=== PATIENT | female | born 1945 | race Caucasian/White ===

== ENCOUNTER → 2023-02-28 10:52 | Outpatient (CLI) | payer MEDICARE, SELFPAY ==
[2023-02-28 11:33] LABS: Basophils % 0.2 % (0.1-2.0); Eosinophils # 0.2 K/mm3 (0.0-0.4); Eosinophils % 1.9 % (0.1-12.0); Hematocrit 40.6 % (37.0-47.0); Hemoglobin 12.6 g/dL (12.2-16.2); Lymphocytes % 31.8 % (10-50); Mean Corpuscular HGB Conc 31.2 g/dL (31.8-35.4); Mean Corpuscular Hemoglobin 28.2 pg (27.0-31.2); Mean Corpuscular Volume 90.4 fl (81-99); Mean Platelet Volume 7.9 fl (7.4-10.4); Monocytes # 0.5 K/mm3 (0.1-1.0); Monocytes % 5.6 % (1.7-9.3); Neutrophils # 5.7 K/mm3 (1.8-7.8); Neutrophils % 60.6 % (37.0-80.0); Platelet Count 275 K/mm3 (142-424); Red Blood Count 4.49 M/mm3 (4.20-5.40); Red Cell Distribution Width 13.9 % (11.5-17.5); White Blood Count 9.3 K/mm3 (4.8-10.8)
[2023-02-28 12:44] LABS: Hemoglobin A1C 6.5 % (4.0-6.0)
[2023-02-28 13:12] LABS: Alanine Aminotransferase 24 U/L (12-78); Albumin Level 4.3 g/dl (3.5-5.0); Alkaline Phosphatase 74 U/L (38-126); Anion Gap 11.1 mEq/L (5-15); Aspartate Amino Transferase 29 U/L (14-36); Bilirubin,Direct 0.2 mg/dl (0.0-0.4); Bilirubin,Total 0.2 mg/dl (0.2-1.3); Blood Urea Nitrogen 18 mg/dl (7-17); Calcium 9.3 mg/dl (8.4-10.2); Carbon Dioxide 27 mmol/L (22.0-30.0); Chloride 103 mmol/L (98-107); Chol/HDL Ratio 3.3 (1-3.5); Cholesterol 167 mg/dl (140-200); Estimated Glomerular Filt Rate 54 ml/min (>60); GFR (African American) 65 ML/MIN (>60); Glucose 60 mg/dl (74-100); HDL Cholesterol 51 mg/dl (40-60); Magnesium 1.6 mg/dl (1.6-2.3); Potassium 4.1 mmoL/L (3.5-5.1); Sodium 137 mmol/L (136-145); Triglycerides 234 mg/dl (30-150); VLDL Cholesterol 47 mg/dL (0-40)
[2023-02-28 13:23] LABS: Direct LDL Cholesterol 78.53 mg/dL (100-129)
[2023-02-28 13:28] LABS: Free T4 (Free Thyroxine) 0.93 ng/dl (0.78-2.19)
[2023-02-28 13:42] LABS: Thyroid Stimulating Hormone 4.07 uIU/mL (0.465-4.68)
== END ==
PROVIDERS: PCP Family Medicine; Visit Provider Physician Assistant
DX: E11.9 Type 2 diabetes mellitus without complications (principal); F41.9 Anxiety disorder, unspecified; I10 Essential (primary) hypertension; R00.2 Palpitations; G45.8 Other transient cerebral ischemic attacks and related syndromes; Z79.84 Long term (current) use of oral hypoglycemic drugs
CPT/HCPCS: 36415; 80048; 80061; 80076; 83036; 83735; 84439; 84443; 85025; 93270

== ENCOUNTER → 2023-04-04 07:21 | Outpatient (CLI) | payer MEDICARE, OTHER, SELFPAY ==
--- NOTE | 2023-04-04 07:26 | NM_ITS ---
APPROVED REPORT Exam: Nuclear Stress Test Indication: HTN, DM, HYPERLIPIDEMIA, PALPITATIONS, FATIGUE Patient Location: Outpatient Stress Tech: Ria Mccallum [place] Tech:Marii Victor RICKClifton RT (R)(N)(M) Ht: 5 ft 4 in Wt: 170 lbs Bra Size: 38D HR: 45 bpm BP: 168/69 mmHg BSA: 1.83 m2 TID: 1.16 BMI: 29.1 History: HTN, DM, HYPERLIPIDEMIA, PALPITATIONS, FATIGUE Procedure: Patient received 0.4 mg of intravenous Lexiscan, resting heart rate 45 bpm, resting blood pressure 168/69 mmHg, with AdenosineLexiscan maximum heart rate achieved was 73 bpm which is % of the maximum predicted heart rate and blood pressure was 126/53 mmHg. PT DID C/O CHEST TINGLING AND SOB WITH LEXISCAN Cardiac Stress and Resting SPECT Images: Cardiac Stress and Resting SPECT images were obtained using technetium 99m Myoview 29.1 mCi stress and 10.37 mCi at rest. Resting and stress imaging in supine and prone positions demonstrate no evidence of fixed or reversible perfusion defects. Gated imaging demonstrates normal global and regional LV systolic function. LVEF is calculated at 63%. Conclusion: No evidence of fixed or reversible perfusion defects. Gated imaging demonstrates normal global and regional LV systolic function. LVEF is calculated at 63%. Electronically signed by : Beena Cosme MD 04/07/2023 12:42:36
--- NOTE | 2023-04-04 08:24 | CA_ITS ---
APPROVED REPORT EXAM: Comprehensive 2D, Doppler, and color-flow Echocardiogram Associate Professor Of Music: Tasneem Chamberlain RDCS Ht: 5 ft 4 in Wt: 170lbs BSA: 1.83 BP: 159/59 mmHg Indications: PALPS,H/O TIA,HTN,DM 2D Dimensions LVOT 1.60 cm (M/F) 1.5-2.5 LA Volume 72.80 mL LA Volume Index 39.78 mL/m2 (M/F) 16-34 M-Mode Dimensions RVDd 2.92 cm (0.9-2.6) LA Diam 3.73 cm (1.9-4.0) LVDd 4.96 cm (3.5-5.7) Ao Diam 2.66 cm (2.0-3.7) LVDs 3.25 cm (3.5-5.7) IVSd 0.97 cm (0.6-1.1) PWd 0.80 cm (0.6-1.1) EF (Teich) 63.40% FS 34.50% EDV (Teich) 116.10 mL TAPSE 2.27 (<1.7) ESV (Teich) 42.50 mL LV Diastology MED E' 4.70 (< 7 cm/sec) LAT E' 6.90 (<10 cm/sec) Left Ventricle The left ventricle is normal size. The left ventricular systolic function is normal. The left ventricular ejection fraction is within the normal range. There is normal left ventricular wall thickness. There is normal LV segmental wall motion. Diastolic function is indeterminate. LVEF is 60%. Right Ventricle Right ventricle is mildly dilated. The right ventricular systolic function is normal. Atria Left atrium is mildly dilated. The right atrium size is normal. There is no Doppler evidence of interatrial shunt. Aortic Valve The aortic valve is mildly thickened. There is no aortic valvular stenosis. No aortic regurgitation is present. Mitral Valve The mitral valve is normal in structure. No evidence of mitral valve stenosis. Mild mitral regurgitation. Tricuspid Valve The tricuspid valve leaflets are thin and pliable. Trace tricuspid regurgitation. RVSP is normal. Pulmonic Valve The pulmonary valve is normal in structure. Trace pulmonic regurgitation. Great Vessels The aortic root is normal in size. The ascending aorta is normal in size. IVC is normal in size and collapses >50% with inspiration. Pericardium Trivial pericardial effusion. Other Information Study Quality: Adequate Conclusion Normal biventricular systolic function. Mildly dilated RV. Mild MR. Electronically signed by : Beena Cosme MD 04/04/2023 22:04:12
--- NOTE | 2023-04-04 10:12 | CA_ITS ---
APPROVED REPORT Exam: Pharmacologic Technologist: Ria Mccallum Ht: 5 ft 3 in Wt: 171 lbs BSA: 1.81 m2 HR: 45 bpm BP: 168/69 mmHg Rhythm: NSR Indications: Palpitations Medical History Medications: Amlodipine,,,,, Hydralazine,,,,, Aspirin,,,,, Vitamin D3,,,,, Glipizide,,,,, Flaxseed Oil,,,,, Valsartan,,,,, Caltrate,,,,, Centrum Silver,,,,, OSTEO Bi Flex,,,,, Sertraline,,,,, RoSUVASTATIN,,,,, Stress Test Details Test: LEXISCAN HR Resting HR: 46 bpm Max Heart Rate (APMHR): 144 bpm Max HR Achieved: 73 bpm Target HR (85% APMHR): 122 bpm % of APMHR: 51 Recovery HR: 57 bpm BP Resting BP: 168.0/69.0 mmHg Max BP: 168.0/69.0 mmHg Recovery BP: 136.0/56.0 mmHg ECG Resting ECG: Normal sinus rhythm Stress ECG: No ST changes Arrhythmia: None Clinical Exercise duration: 04:15 min Highest Stage Achieved: Exercise capacity: 1.0 METs Stress ECG Conclusion Symptoms: Chest tingling, Shortness of Breath, Headache Arrhythmias/Ectopy: None ST-T Changes: No significant ST changes Conclusion: Unremarkable Lexiscan stress test. Myoview images are reported separately. Test Summary REST . . . . . . . Resting REST 06:11 . . 46 . 168/ 69 . . Stage 1 . . . . . . . Myoview Injected Stage 1 01:00 . . 65 . . . . Stage 2 01:00 . . 69 . 126/ 53 . . Stage 3 01:00 . . 65 . . . . Stage 4 01:00 . . 64 . . . . Stage 4 01:15 . . 61 . . . Stop exercise at 04:15 RECOVERY 01:00 . . 51 . 111/ 50 . . RECOVERY 02:00 . . 59 . 111/ 50 . . RECOVERY 03:00 . . 60 . 127/ 55 . . RECOVERY 04:00 . . 58 . 132/ 53 . . RECOVERY 04:29 . . 55 . 136/ 56 . . Electronically signed by : Beena Cosme MD 04/07/2023 12:41:40
== END ==
LOC: RAD 07:22
PROVIDERS: PCP Family Medicine; Visit Provider Physician Assistant
DX: I10 Essential (primary) hypertension; R00.2 Palpitations; G45.8 Other transient cerebral ischemic attacks and related syndromes; E11.9 Type 2 diabetes mellitus without complications; Z79.84 Long term (current) use of oral hypoglycemic drugs; Z79.899 Other long term (current) drug therapy; R07.89 Other chest pain
CPT/HCPCS: 78452; 93017; 93306; A9502; J2785

== ENCOUNTER → 2023-04-19 07:36 | Outpatient (CLI) | payer MEDICARE, OTHER, SELFPAY ==
--- NOTE | 2023-04-19 07:36 | US_ITS ---
FINAL REPORT CLINICAL HISTORY: G45.9 - Transient cerebral ischemic attack, unspecified FINDINGS: The right kidney measures 10.4 cm in length. It is normal in echogenicity. There is no hydronephrosis. The left kidney measures 11.1 cm in length. It is normal in echogenicity. There is no hydronephrosis. The spleen is unremarkable. IMPRESSION: Normal renal ultrasound. Reviewed, Interpreted and Dictated by Florentin Gunn MD Transcribed by Ally Griffin Authenticated and [facility]
--- NOTE | 2023-04-19 07:36 | CA_ITS ---
FINAL REPORT CLINICAL HISTORY: HTN COMPARISON: None FINDINGS: Aorta velocity: 112 cm/sec Right kidney: 10.3 cm. No evidence of hydronephrosis or mass. Right intrarenal RI: 0.83 Right renal artery velocity: 112 cm/sec. Right RAR (Renal artery-Aortic Ratio): 1.01 Left Kidney: 10.1 cm. No evidence of hydronephrosis or mass. Left intrarenal RI: 0.85 Left renal artery velocity: 132 cm/sec. Left RAR (Renal Artery-Aortic Ratio): 1.2 IMPRESSION: No evidence of significant renal artery stenosis. CT angiogram or postcontrast MR angiogram would be more sensitive for evaluation of possible renal artery stenosis. Reviewed, Interpreted and Dictated by Florentin Gunn MD Transcribed by Renee Michele Authenticated and [facility]
== END ==
PROVIDERS: PCP Family Medicine; Visit Provider Physician Assistant
DX: I10 Essential (primary) hypertension (principal); Z86.73 Personal history of transient ischemic attack (TIA), and cerebral infarction without residual deficits; R00.2 Palpitations; E11.9 Type 2 diabetes mellitus without complications; Z79.84 Long term (current) use of oral hypoglycemic drugs; F41.9 Anxiety disorder, unspecified
CPT/HCPCS: 76770; 93976

== ENCOUNTER 2023-08-02 08:50 | Outpatient (CLI) | payer MEDICARE, OTHER, SELFPAY ==
[2023-08-02 09:16] LABS: Basophils % 0.2 % (0.1-2.0); Eosinophils # 0.2 K/mm3 (0.0-0.4); Eosinophils % 1.6 % (0.1-12.0); Hematocrit 37.1 % (37.0-47.0); Hemoglobin 12.3 g/dL (12.2-16.2); Lymphocytes # 2.3 K/mm3 (0.7-4.5); Lymphocytes % 24.1 % (10-50); Mean Corpuscular HGB Conc 33.1 g/dL (31.8-35.4); Mean Corpuscular Hemoglobin 30.1 pg (27.0-31.2); Mean Corpuscular Volume 90.8 fl (81-99); Monocytes # 0.5 K/mm3 (0.1-1.0); Monocytes % 4.9 % (1.7-9.3); Neutrophils # 6.6 K/mm3 (1.8-7.8); Neutrophils % 69.2 % (37.0-80.0); Platelet Count 312 K/mm3 (142-424); Red Blood Count 4.09 M/mm3 (4.20-5.40); Red Cell Distribution Width 13.4 % (11.5-17.5); White Blood Count 9.6 K/mm3 (4.8-10.8)
[2023-08-02 09:36] LABS: Alanine Aminotransferase 31 U/L (12-78); Albumin Level 4.4 g/dl (3.5-5.0); Alkaline Phosphatase 78 U/L (38-126); Anion Gap 10.8 mEq/L (5-15); Aspartate Amino Transferase 31 U/L (14-36); Bilirubin,Direct 0.2 mg/dl (0.0-0.4); Bilirubin,Indirect 0.2 mg/dL (0.0-0.9); Bilirubin,Total 0.4 mg/dl (0.2-1.3); Bilirubin,Unconjugated 0.1 mg/dL (0.0-1.1); Blood Urea Nitrogen 16 mg/dl (7-17); Calcium 9.7 mg/dl (8.4-10.2); Carbon Dioxide 29 mmol/L (22.0-30.0); Chloride 94 mmol/L (98-107); Cholesterol 171 mg/dl (140-200); Estimated Glomerular Filt Rate 61 ml/min (>60); GFR (African American) 74 ML/MIN (>60); Glucose 143 mg/dl (74-100); HDL Cholesterol 43 mg/dl (40-60); Magnesium 1.5 mg/dl (1.6-2.3); Potassium 3.8 mmoL/L (3.5-5.1); Sodium 130 mmol/L (136-145); Triglycerides 221 mg/dl (30-150); VLDL Cholesterol 44 mg/dL (0-40)
[2023-08-02 09:47] LABS: Direct LDL Cholesterol 80.66 mg/dL (100-129)
[2023-08-02 09:50] LABS: Free T4 (Free Thyroxine) 0.95 ng/dl (0.78-2.19)
[2023-08-02 10:05] LABS: Thyroid Stimulating Hormone 4.57 uIU/mL (0.465-4.68)
== END 2023-08-02 23:59 ==
LOC: LAB 08:51
PROVIDERS: Physician Assistant; PCP Family Medicine; Visit Provider Physician Assistant
DX: E11.9 Type 2 diabetes mellitus without complications (principal); I10 Essential (primary) hypertension; Z79.84 Long term (current) use of oral hypoglycemic drugs; Z79.899 Other long term (current) drug therapy
CPT/HCPCS: 36415; 80048; 80061; 80076; 83735; 84439; 84443; 85025

== ENCOUNTER 2023-08-22 11:41 | Outpatient (CLI) | payer MEDICARE, OTHER, SELFPAY ==
[2023-08-22 13:14] LABS: Blood Urea Nitrogen 18 mg/dl (7-17); Calcium 9.3 mg/dl (8.4-10.2); Carbon Dioxide 30 mmol/L (22.0-30.0); Chloride 90 mmol/L (98-107); Estimated Glomerular Filt Rate 61 ml/min (>60); GFR (African American) 74 ML/MIN (>60); Glucose 84 mg/dl (74-100); Sodium 128 mmol/L (136-145)
== END 2023-08-22 23:59 ==
PROVIDERS: Nurse Practitioner Family; PCP Family Medicine; Visit Provider Physician Assistant
DX: E87.1 Hypo-osmolality and hyponatremia (principal)
CPT/HCPCS: 36415; 80048

== ENCOUNTER 2023-09-22 10:24 | Outpatient (CLI) | payer MEDICARE, OTHER, SELFPAY ==
[2023-09-22 11:32] LABS: Anion Gap 13.3 mEq/L (5-15); Blood Urea Nitrogen 15 mg/dl (7-17); Calcium 9.2 mg/dl (8.4-10.2); Carbon Dioxide 25 mmol/L (22.0-30.0); Chloride 100 mmol/L (98-107); Estimated Glomerular Filt Rate 70 ml/min (>60); GFR (African American) 84 ML/MIN (>60); Glucose 200 mg/dl (74-100); Potassium 4.3 mmoL/L (3.5-5.1); Sodium 134 mmol/L (136-145)
== END 2023-09-22 23:59 ==
LOC: LAB 10:25
PROVIDERS: PCP Family Medicine; Visit Provider Physician Assistant
DX: E87.1 Hypo-osmolality and hyponatremia (principal); I10 Essential (primary) hypertension
CPT/HCPCS: 36415; 80048

== ENCOUNTER 2023-10-26 14:40 | Outpatient (CLI) | payer MEDICARE, OTHER, SELFPAY ==
[2023-10-26 15:04] LABS: Chloride 101 mmol/L (98-107); Potassium 4.2 mmoL/L (3.5-5.1); Sodium 134 mmol/L (136-145)
[2023-10-26 15:07] LABS: Anion Gap 11.2 mEq/L (5-15); Blood Urea Nitrogen 21 mg/dl (7-17); Calcium 8.9 mg/dl (8.4-10.2); Carbon Dioxide 26 mmol/L (22.0-30.0); Estimated Glomerular Filt Rate 40 ml/min (>60); GFR (African American) 48 ML/MIN (>60); Glucose 120 mg/dl (74-100); Magnesium 1.4 mg/dl (1.6-2.3)
== END 2023-10-26 23:59 | disposition home or self-care (01) ==
LOC: LAB 14:41
PROVIDERS: PCP Family Medicine; Visit Provider Physician Assistant
DX: E87.1 Hypo-osmolality and hyponatremia (principal); G45.9 Transient cerebral ischemic attack, unspecified; R00.2 Palpitations; F41.9 Anxiety disorder, unspecified; E11.9 Type 2 diabetes mellitus without complications; I10 Essential (primary) hypertension; Z79.899 Other long term (current) drug therapy
CPT/HCPCS: 36415; 80048; 83735

== ENCOUNTER 2023-11-04 11:29 | Outpatient (CLI) | payer MEDICARE, OTHER, SELFPAY ==
[2023-11-04 12:01] LABS: Anion Gap 13.4 mEq/L (5-15); Blood Urea Nitrogen 19 mg/dl (7-17); Calcium 9.6 mg/dl (8.4-10.2); Carbon Dioxide 28 mmol/L (22.0-30.0); Chloride 96 mmol/L (98-107); Estimated Glomerular Filt Rate 54 ml/min (>60); GFR (African American) 65 ML/MIN (>60); Glucose 109 mg/dl (74-100); Potassium 4.4 mmoL/L (3.5-5.1); Sodium 133 mmol/L (136-145)
== END 2023-11-04 23:59 | disposition home or self-care (01) ==
LOC: LAB 11:30
PROVIDERS: PCP Family Medicine; Visit Provider Physician Assistant
DX: E87.1 Hypo-osmolality and hyponatremia (principal); R79.89 Other specified abnormal findings of blood chemistry
CPT/HCPCS: 36415; 80048

== ENCOUNTER 2024-02-27 13:44 | Outpatient (CLI) | payer MEDICARE, OTHER, SELFPAY ==
[2024-02-27 14:08] LABS: Basophils % 0.3 % (0.1-2.0); Eosinophils # 0.1 K/mm3 (0.0-0.4); Eosinophils % 0.3 % (0.1-12.0); Hematocrit 38.3 % (37.0-47.0); Hemoglobin 12.2 g/dL (12.2-16.2); Lymphocytes # 1.9 K/mm3 (0.7-4.5); Lymphocytes % 12.8 % (10-50); Mean Corpuscular HGB Conc 31.8 g/dL (31.8-35.4); Mean Corpuscular Hemoglobin 28.5 pg (27.0-31.2); Mean Corpuscular Volume 89.5 fl (81-99); Mean Platelet Volume 8.7 fl (7.4-10.4); Monocytes # 0.4 K/mm3 (0.1-1.0); Monocytes % 2.6 % (1.7-9.3); Neutrophils # 12.6 K/mm3 (1.8-7.8); Neutrophils % 84.1 % (37.0-80.0); Platelet Count 403 K/mm3 (142-424); Red Blood Count 4.28 M/mm3 (4.20-5.40); Red Cell Distribution Width 13.9 % (11.5-17.5)
[2024-02-27 14:15] LABS: MANUAL DIFFERENTIAL MANUAL DIFFERENTIAL (MANUAL DIFF)
[2024-02-27 14:52] LABS: Albumin Level 4.3 g/dl (3.5-5.0); Chloride 93 mmol/L (98-107); Sodium 122 mmol/L (136-145)
[2024-02-27 14:55] LABS: Alanine Aminotransferase 35 U/L (12-78); Alkaline Phosphatase 85 U/L (38-126); Aspartate Amino Transferase 28 U/L (14-36); Bilirubin,Direct 0.2 mg/dl (0.0-0.4); Bilirubin,Indirect 0.2 mg/dL (0.0-0.9); Bilirubin,Total 0.4 mg/dl (0.2-1.3); Bilirubin,Unconjugated 0.2 mg/dL (0.0-1.1); Blood Urea Nitrogen 23 mg/dl (7-17); Carbon Dioxide 23 mmol/L (22.0-30.0); Cholesterol 174 mg/dl (140-200); Estimated Glomerular Filt Rate 44 ml/min (>60); GFR (African American) 53 ML/MIN (>60); Total Protein,Serum 6.8 g/dl (6.3-8.2); Triglycerides 223 mg/dl (30-150); VLDL Cholesterol 45 mg/dL (0-40)
[2024-02-27 14:56] LABS: Calcium 9.1 mg/dl (8.4-10.2); Chol/HDL Ratio 3.8 (1-3.5); Glucose 325 mg/dl (74-100); HDL Cholesterol 46 mg/dl (40-60)
[2024-02-27 15:07] LABS: Direct LDL Cholesterol 72.08 mg/dL (100-129)
[2024-02-27 15:34] LABS: Lymphocytes % 11 % (10-50); Monocytes % 5 % (2-9); Neutrophils % 84 % (42-76); Platelet Estimate Normal; RBC Morphology Normal; Total Cells Counted 100
[2024-02-27 15:50] LABS: Free T4 (Free Thyroxine) 1.41 ng/dl (0.78-2.19)
[2024-02-27 15:52] LABS: Thyroid Stimulating Hormone 3.62 uIU/mL (0.465-4.68)
== END 2024-02-27 23:59 | disposition home or self-care (01) ==
LOC: LAB 13:46
PROVIDERS: PCP Family Medicine; Visit Provider Physician Assistant
DX: E78.5 Hyperlipidemia, unspecified (principal); R79.89 Other specified abnormal findings of blood chemistry; E87.1 Hypo-osmolality and hyponatremia; G45.9 Transient cerebral ischemic attack, unspecified; R00.2 Palpitations; F41.9 Anxiety disorder, unspecified; E11.9 Type 2 diabetes mellitus without complications; I10 Essential (primary) hypertension; R60.9 Edema, unspecified
CPT/HCPCS: 36415; 80048; 80061; 80076; 84439; 84443; 85007; 85025; 85027

== ENCOUNTER 2024-03-05 12:59 | Outpatient (CLI) | payer MEDICARE, OTHER, SELFPAY ==
[2024-03-05 13:34] LABS: Basophils # 0.1 K/mm3 (0-0.2); Basophils % 0.5 % (0.1-2.0); Eosinophils # 0.2 K/mm3 (0.0-0.4); Eosinophils % 1.4 % (0.1-12.0); Hematocrit 37.5 % (37.0-47.0); Hemoglobin 11.9 g/dL (12.2-16.2); Lymphocytes # 3.6 K/mm3 (0.7-4.5); Lymphocytes % 26.8 % (10-50); Mean Corpuscular HGB Conc 31.6 g/dL (31.8-35.4); Mean Corpuscular Hemoglobin 28.4 pg (27.0-31.2); Mean Corpuscular Volume 89.7 fl (81-99); Mean Platelet Volume 6.3 fl (7.4-10.4); Monocytes # 0.6 K/mm3 (0.1-1.0); Monocytes % 4.3 % (1.7-9.3); Neutrophils # 8.9 K/mm3 (1.8-7.8); Neutrophils % 66.9 % (37.0-80.0); Platelet Count 356 K/mm3 (142-424); Red Blood Count 4.18 M/mm3 (4.20-5.40); Red Cell Distribution Width 13.7 % (11.5-17.5); White Blood Count 13.4 K/mm3 (4.8-10.8)
[2024-03-05 14:13] LABS: Alanine Aminotransferase 33 U/L (12-78); Alkaline Phosphatase 64 U/L (38-126); Anion Gap 7.5 mEq/L (5-15); Aspartate Amino Transferase 29 U/L (14-36); Bilirubin,Direct 0.2 mg/dl (0.0-0.4); Bilirubin,Indirect 0.2 mg/dL (0.0-0.9); Bilirubin,Total 0.4 mg/dl (0.2-1.3); Bilirubin,Unconjugated 0.2 mg/dL (0.0-1.1); Blood Urea Nitrogen 18 mg/dl (7-17); Calcium 8.8 mg/dl (8.4-10.2); Carbon Dioxide 27 mmol/L (22.0-30.0); Chloride 95 mmol/L (98-107); Chol/HDL Ratio 3.2 (1-3.5); Cholesterol 170 mg/dl (140-200); Estimated Glomerular Filt Rate 54 ml/min (>60); GFR (African American) 65 ML/MIN (>60); Glucose 177 mg/dl (74-100); HDL Cholesterol 53 mg/dl (40-60); Magnesium 1.5 mg/dl (1.6-2.3); Potassium 4.5 mmoL/L (3.5-5.1); Sodium 125 mmol/L (136-145); Total Protein,Serum 6.3 g/dl (6.3-8.2); Triglycerides 246 mg/dl (30-150); VLDL Cholesterol 49 mg/dL (0-40)
[2024-03-05 14:24] LABS: Direct LDL Cholesterol 66.07 mg/dL (100-129)
[2024-03-05 14:44] LABS: Thyroid Stimulating Hormone 4.86 uIU/mL (0.465-4.68)
== END 2024-03-05 23:59 | disposition home or self-care (01) ==
LOC: LAB 13:00
PROVIDERS: PCP Family Medicine; Visit Provider Physician Assistant
DX: I10 Essential (primary) hypertension (principal); F41.9 Anxiety disorder, unspecified; R00.2 Palpitations; G45.9 Transient cerebral ischemic attack, unspecified; E87.1 Hypo-osmolality and hyponatremia; R79.89 Other specified abnormal findings of blood chemistry; E11.9 Type 2 diabetes mellitus without complications
CPT/HCPCS: 36415; 80048; 80061; 80076; 83735; 84439; 84443; 85025

== ENCOUNTER 2024-06-27 12:03 | Outpatient (CLI) | payer MEDICARE, OTHER, SELFPAY ==
[2024-06-27 12:31] LABS: Basophils % 0.4 % (0.1-2.0); Eosinophils # 0.2 K/mm3 (0.0-0.4); Eosinophils % 1.6 % (0.1-12.0); Hematocrit 33.9 % (37.0-47.0); Hemoglobin 11.4 g/dL (12.2-16.2); Lymphocytes # 2.4 K/mm3 (0.7-4.5); Lymphocytes % 24.1 % (10-50); Mean Corpuscular HGB Conc 33.6 g/dL (31.8-35.4); Mean Corpuscular Hemoglobin 28.4 pg (27.0-31.2); Mean Corpuscular Volume 84.5 fl (81-99); Mean Platelet Volume 8.6 fl (7.4-10.4); Monocytes # 0.6 K/mm3 (0.1-1.0); Neutrophils # 6.7 K/mm3 (1.8-7.8); Neutrophils % 67.5 % (37.0-80.0); Platelet Count 281 K/mm3 (142-424); Red Blood Count 4.01 M/mm3 (4.20-5.40); Red Cell Distribution Width 12.7 % (11.5-17.5); White Blood Count 9.9 K/mm3 (4.8-10.8)
[2024-06-27 13:04] LABS: Albumin Level 4.2 g/dl (3.5-5.0); Chloride 97 mmol/L (98-107)
[2024-06-27 13:05] LABS: Potassium 4.5 mmoL/L (3.5-5.1); Sodium 130 mmol/L (136-145)
[2024-06-27 13:07] LABS: Alanine Aminotransferase 30 U/L (12-78); Anion Gap 10.5 mEq/L (5-15); Aspartate Amino Transferase 32 U/L (14-36); Bilirubin,Unconjugated 0.1 mg/dL (0.0-1.1); Blood Urea Nitrogen 21 mg/dl (7-17); Carbon Dioxide 27 mmol/L (22.0-30.0); Cholesterol 158 mg/dl (140-200); Estimated Glomerular Filt Rate 40 ml/min (>60); GFR (African American) 48 ML/MIN (>60); Total Protein,Serum 6.7 g/dl (6.3-8.2); Triglycerides 259 mg/dl (30-150); VLDL Cholesterol 52 mg/dL (0-40)
[2024-06-27 13:08] LABS: Alkaline Phosphatase 83 U/L (38-126); Bilirubin,Direct 0.2 mg/dl (0.0-0.4); Bilirubin,Total 0.2 mg/dl (0.2-1.3); Calcium 9.3 mg/dl (8.4-10.2); Chol/HDL Ratio 4.2 (1-3.5); Glucose 75 mg/dl (74-100); HDL Cholesterol 38 mg/dl (40-60)
[2024-06-27 13:19] LABS: Direct LDL Cholesterol 76.23 mg/dL (100-129)
[2024-06-27 13:23] LABS: Free T4 (Free Thyroxine) 1.22 ng/dl (0.78-2.19)
[2024-06-27 13:41] LABS: Thyroid Stimulating Hormone 5.67 uIU/mL (0.465-4.68)
== END 2024-06-27 23:59 | disposition home or self-care (01) ==
LOC: LAB 12:05
PROVIDERS: PCP Family Medicine; Visit Provider Physician Assistant
DX: E03.9 Hypothyroidism, unspecified (principal); E11.9 Type 2 diabetes mellitus without complications; I10 Essential (primary) hypertension
CPT/HCPCS: 36415; 80048; 80061; 80076; 84439; 84443; 85025

== ENCOUNTER 2024-08-28 09:55 | Outpatient (CLI) | payer MEDICARE, OTHER, SELFPAY ==
[2024-08-28 11:40] LABS: Anion Gap 10.5 mEq/L (5-15); Blood Urea Nitrogen 18 mg/dl (7-17); Calcium 9.7 mg/dl (8.4-10.2); Carbon Dioxide 27 mmol/L (22.0-30.0); Chloride 95 mmol/L (98-107); Estimated Glomerular Filt Rate 61 ml/min (>60); GFR (African American) 73 ML/MIN (>60); Glucose 91 mg/dl (74-100); Potassium 4.5 mmoL/L (3.5-5.1); Sodium 128 mmol/L (136-145)
[2024-08-28 11:57] LABS: Free T4 (Free Thyroxine) 1.52 ng/dl (0.78-2.19)
[2024-08-28 12:11] LABS: Thyroid Stimulating Hormone 5.48 uIU/mL (0.465-4.68)
== END 2024-08-28 23:59 | disposition home or self-care (01) ==
LOC: LAB 09:56
PROVIDERS: PCP Family Medicine; Visit Provider Internal Medicine
DX: E03.9 Hypothyroidism, unspecified (principal); E11.9 Type 2 diabetes mellitus without complications; I10 Essential (primary) hypertension
CPT/HCPCS: 36415; 80048; 84439; 84443

== ENCOUNTER 2024-12-31 13:16 | Outpatient (CLI) | payer MEDICARE, OTHER, SELFPAY ==
--- NOTE | 2024-12-31 13:20 | XR_ITS ---
FINAL REPORT TECHNIQUE: Bone densitometry calculations of the lumbar spine and bilateral hips were obtained. CLINICAL HISTORY: SCREENING COMPARISON: None FINDINGS: Using L1-4, the bone mineral density of the spine is 0.992 g/cm2, corresponding to T-score of -0.5 and a Z score of 2.0. This is within the range of normal. Using the left hip, the bone mineral density of the femoral neck is 0.701 g/cm2, corresponding to a T-score of -1.3 and a Z-score of 0.9. This is within the range of osteopenia. Using the right hip, the bone mineral density of the femoral neck is 0.742 g/cm?, corresponding to a T-score of -1.0 and a Z-score of 1.2. This is within the range of osteopenia. NOTE: T-score: Standard deviation compared with peak bone mass of young adult mean. *Following the recommendations of the International Society of Bone densitometry, classification of hip BMD is based on the lower of two T-scores; total hip or femoral neck. IMPRESSION: 1. Bone mineral density of the lumbar spine within the range of normal. 2. Bone mineral density of the bilateral femoral necks within the range of osteopenia. Reviewed, Interpreted and Dictated by Hanna Joy MD Transcribed by Renee Michele Authenticated and [facility]
--- OUTSIDE RECORDS SUMMARY | 2024-12-31 13:20 | XMS_ITS | Clinical Summary ---
Author Organization [facility] Address [address] [place] [address] Care Team Providers Care Ambulance Driver Name Role Phone King Fish MD Primary Care Provider [phone] Allergies Active Allergy Reactions Criticality Noted Date Comments Atorvastatin Unknown - Patient st ates they do not know rxn details,Nausea Medium 08/14/2019 Other reaction(s): Myalgia Lisinopril Cough,Nausea,Unknown - Patient states they do not know rxn details Low 05/13/2020 Niacin Unknown - Patient st ates they do not know rxn details,Swelling High 08/14/2019 Nitrofurantoin Nausea High 08/14/2019 Ineffective Sulfa Drugs Nausea Low 08/14/2019 Ineffective Sulfacetamide Unknown - Patient st ates they do not know rxn details Low 01/15/2020 Medications amLODIPine (Norvasc) 10 MG tablet 1 tablet 1 (one) time each day. 0 Active aspirin 81 MG EC tablet 1 tablet 1 (one) time each day. 0 Active Cranberry 500 MG capsule 1 Cartridge 2 (two) times a day. 0 Active ezetimibe (Zetia) 10 MG tablet 1 tablet 1 (one) time each day. 0 Active Flaxseed, Linseed, (Flax Seed Oil) 1000 MG capsule 1 capsule 2 (two) times a day. 0 Active metFORMIN (Glucophage) 500 MG tablet 2 tablets 2 (two) times a day. 0 Active nebivolol (Bystolic) 10 MG tablet 1 tablet 2 (two) times a day. 0 Active rosuvastatin (Crestor) 5 MG tablet 1 tablet 1 (one) time each day. 0 Active sertraline (Zoloft) 100 MG tablet 1 tablet 1 (one) time each day. 1 Active Calcium Carbonate-Vit D-Min (CALTRATE 600+D PLUS MINERALS PO) 1 tablet 2 (two) times a day. 0 Active NUTRITIONAL SUPPLEMENTS PO 1 tablet 2 (two) times a day. 0 Active Cholecalciferol (VITAMIN D3 PO) 1 capsule 1 (one) time each day. 0 Active OneTouch Ultra test strip 2 Active nebivolol (Bystolic) 20 MG tablet 2 Active methenamine hippurate (Hiprex) 1 g tablet Take 1 g by mouth 2 (two) times a day. 2 Active ofloxacin (Ocuflox) 0.3 % ophthalmic solution Administer 1 drop into the left eye 3 (three) times a day. 10 mL 1 2 Active difluprednate (Durezol) 0.05 % ophthalmic emulsion Administer 1 drop into the left eye 4 (four) times a day. Active Misc Natural Products (OSTEO BI-FLEX/5-LOXIN ADVANCED PO) Osteo Bi-Flex Act pal cholecalciferol (Vitamin D-3) 50 MCG (1999 UT) capsule D3-2000 Active Multiple Vitamins-Minerals (CENTRUM SILVER 50+MEN PO) Centrum Silver Acti ve calcium carbonate 1500 (600 Ca) MG tablet Caltrate Active calcium carbonate (Os-Oral) 600 MG tablet Caltrate Active BOSWELLIA-GLUCOSA MINE-VIT D PO Osteo Bi-Flex Ac tive AMLODIPINE BENZOATE PO amlodipine Active valsartan (Diovan) 80 MG tabletIndications :Primary hypertension TAKE 1 TABLET ONCE DAILY 90 tablet 3 2 Active hydrALAZINE (Apresoline) 100 MG tabletIndications :Primary hypertension TAKE 1 TABLET 3 TIMES A DAY 270 tablet 3 2 Active Active Problems Problem Noted Date Diagnosed Date Recurrent urinary tract infection 06/21/2021 HTN (hypertension) 01/07/2020 Hypercholesterolemia 01/07/2020 Type 2 diabetes mellitus 01/07/2020 Renal artery stenosis 08/15/2019 Resolved Problems Problem Noted Date Diagnosed Date Resolved Date Lip numbness 01/07/2020 11/16/2021 Nausea 01/07/2020 11/16/2021 Numbness and tingling in left hand 01/07/2020 11/16/2021 Social History Tobacco Use Types Packs/Day Years Used Date Smoking Tobacco: Never Smokeless Tobacco: Never Alcohol Use Standard Drinks/Week Comments No 0 (1 standard drink = 0.6 oz pur e alcohol) Comments Unknown Sex and Gender Information Value Date Recorded Sex Assigned at Not on file Legal Sex Female 6:55 PM EDT Gender Identity Not on file Sexual Orientation Not on file Last Filed Vital Signs Vital Sign Reading Time Taken Comments Blood Pressure 148/80 05/12/2021 2:08 PM EST Pulse 55 05/12/2021 2:08 PM EST Temperature 36.6 C (97.8 F) 01/15/2020 10:51 AM EDT Respiratory Rate - - Oxygen Saturation - - Inhaled Oxygen Concentration - - Weight 73.9 kg (163 lb) 05/12/2021 2:08 PM EST Height 160 cm (5' 3 ) 05/12/2021 2:08 PM EST Body Mass Index 28.87 05/12/2021 2:08 PM EST Plan of Treatment Health Maintenance Due Date Last Done Comments [facility]Bone Density Scan 1947 [facility]-Depression Screening 1947 [facility]Diabetes: Hemoglobin A1C 1945 [facility] Wellness (AWV) 1945 [facility]-Infant/Child/Adol SDOH Screenings 1947 Diabetes: Dental Exam 1957 [facility]- SDOH Screenings 1965 [facility]-Adult SDOH Screenings 1965 [facility]-DTaP,Tdap,and Td Vaccines (1 - Tdap) 1966 [facility]-Pneumococcal Vaccine: 50+ Years (1 of 2 - PCV) 1966 [facility]-Zoster Vaccines (2 of 2) 09/14/2018 07/20/2018 [facility]-RSV Vaccine: 60+ Years or (1 - 1-dose 75+ series) 2022 [id number] Vaccine ( - season) 2024 04/23/2021, 09/19/2020, 08/19/2020 [facility]-Influenza Vaccine (#1) 2025 [facility]-Hepatitis C Screening Completed 05/16/2020 HPV Vaccines Aged Out No longer eligi ble based on patient's age to complete this topic [facility]-HIB Vaccines Aged Out No longer e ligible based on patient's age to complete this topic [facility]-Hepatitis A Vaccines Aged Out No longer eligible based on patient's age to complete this topic [facility]-IPV Vaccines Aged Out No longer e ligible based on patient's age to complete this topic [facility]-Rotavirus Vaccines Aged Out No lo nger eligible based on patient's age to complete this topic Procedures Procedure Name Priority Date/Time Associated Diagnosis Comments HEPATITIS C ANTIBODY - ED W/REFLEX TO HCV QUANT PCR Routine 05/16/2020 2:33 PM EST from Last 3 Months or Most Recently Relevant to Health Maintenance Results * [facility] Hepatitis C Antibody (05/16/2020 2:33 PM EST) [facility] Hepatitis C Ab NEGATIVE Reference Range: Negative SUNQUEST 05/16/2020 2:33 PM EST 05/16/2020 2:54 PM EST Mars Aviles MD LAB BLOOD ORDERABLES Final Re sult SUNQUEST from Last 3 Months or Most Recently Relevant to Health Maintenance Insurance MEDICARE Member Subscriber Plan / Payer (Ef fective 2012-Present) Name:Socorro Zamora Member ID:[id number] Relation to Subscriber:Self Name:Socorro Zamora Subscriber ID:[id number] Payer ID:MEDICARE Group ID:Not on file Type:Medicare Address: [place] [phone] Care Teams Ambulance Driver Relationship Specialty Start Date End Date King Fish MD [address] [place], [place] [id number] PCP - General 10/17/20
--- OUTSIDE RECORDS SUMMARY | 2024-12-31 13:20 | XMS_ITS | Data Portability ---
Author Organization [facility]OS[facility] Address [address] [place] [address] Care Team Providers Care Weaving Loom Operator Name Role Phone JORGE L LANGE Primary Care Provider [phone] Assessment No assessment recorded. Plan of Treatment Reminders Order Date Submit Date Provider Last Modified By Organization Details Last Modified Time Details Appointments None recorded . Lab urinalys is panel, auto 2021 [facility], [address], [address], [place], [address], 2 17:36:56 urinalys is panel, auto 2021 [facility], [address], [address], [place], [address], 2 15:25:18 urinalys is panel, auto 2021 [facility], [address], [address], [place], [address], 2 08:30:31 culture, urine 2021 [facility], [address] [place] [address], [address], 2 10:30:22 Referral None recorded . Procedures None recorded . Surgeries cystosco py (SURG) [address] [facility], [address], [address], [place], [address], 16:05:19 Imaging US, retroper itoneum, limited 2021 [facility], [address] [facility] , [place], [address], 16:45:53 Medication Orders methenam ine hippurat e 1 gram tablet 2021 [facility] [address] [place], [address], 15:50:48 Patient TargetsNo targets recorded. Patient Instructions Encounter Date Encounter Id Patient Instructions Last Modified By Organization Details Last Modified Time 06/15/2021 [id number] learning about healthy weight [facility] Not available 06/21/2021 15:40:20 plan for methenamine trial. plan for anatomic assessment [facility] Not available 06/21/2021 15:51:19 10/05/2021 [id number] healthy together [facility] Not availabl e 10/11/2021 15:25:18 04/12/2022 [id number] healthy together [facility] Not availabl e 04/18/2022 17:36:56 Reason for Referral None Reported. Results Created Date Observation Date Name Description Value Unit Range Abnormal Flag Note LastModifiedBy Organization Detail LastModifiedTime 06/15/1906/15/2021 URINE CULTU RE results Sourc e: CCUR Colle cted: 06/15 16:31 Site: Recei betsy : 06/15 19:40 URINE CULTU RE FINAL 06/17 10:29 06/16 COLON Y COUNT : > 100,0 00 CFU/M L Proba ble Gram Negat pal Bacil kelly. ID and sensi tivit y in progr ess. 06/17 See [facility] Resul t(s) Below ISOLA PETRA AND SENSI TIVIT Y RESUL TS [facility] 01 Esche blas a coli, ESBL __ [facility] ORG# 01 ANTIB IOTIC S KIMBERLY INT __ Amox/ K Clav' ate(c ) <=8/4 S Amp/S ulbac cooney(c ) 16/8 I Ampic illin >16 R* Cefaz stephany >16 R* Cefta zidim e 8 ESBL Ceftr iaxon e >32 ESBL Cefur oxime >16 R* Cipro floxa brandi >2 R Ertap enem <=0.5 S Genta micin <=4 S Levof loxac in >4 R Nitro furan toin <=32 S Piper acill in/Ta z <=16 S Tetra cycli ne <=4 S Tobra mycin <=4 S Trime th/Taylor lfa <=2/3 8 S Trime thopr im <=8 S Not Available [facility] [place], [address], 06/17/2021 10:30:22 06/15/19 22 06/15/2021 urina lysis panel , auto Unknown Analyte Clean Catch Not Available [facility] With [address], [place], [address], 06/15/2021 16:29:45 06/15/19 22 06/15/2021 urina lysis panel , auto Unknown Analyte Yellow Not Available [facility] [place] [facility] [place] [address], [place], [address], 06/15/2021 16:29:45 06/15/19 22 06/15/2021 urina lysis panel , auto Unknown Analyte Cloudy Not Available [facility] [address], [place], [address], 06/15/2021 16:29:45 06/15/19 22 06/15/2021 urina lysis panel , auto Unknown Analyte 1.015 Not Available [facility] With [place] [address], [place], [address], 06/15/2021 16:29:45 06/15/19 22 06/15/2021 urina lysis panel , auto Unknown Analyte 1.003- 1.035 Not Available [facility] [place] [address], [place], [address], 06/15/2021 16:29:45 06/15/19 22 06/15/2021 urina lysis panel , auto Unknown Analyte 6.0 Not Available [facility] With [place] [address], [place], [address], 06/15/2021 16:29:45 06/15/19 22 06/15/2021 urina lysis panel , auto Unknown Analyte 5.0-8. 0 Not Available [facility] [address], [place], [address], 06/15/2021 16:29:45 06/15/19 22 06/15/2021 urina lysis panel , auto Unknown Analyte 500 Brice/ul (++) Not Available [facility] [place] [facility] [address], [place], [address], 06/15/2021 16:29:45 06/15/19 22 06/15/2021 urina lysis panel , auto Unknown Analyte Negati ve Not Available [facility] [address], [place], [address], 06/15/2021 16:29:45 06/15/19 22 06/15/2021 urina lysis panel , auto Unknown Analyte Negati ve Not Available [facility] [address], [place], [address], 06/15/2021 16:29:45 06/15/19 22 06/15/2021 urina lysis panel , auto Unknown Analyte Negati ve Not Available [facility] [address], [place], [address], 06/15/2021 16:29:45 06/15/19 22 06/15/2021 urina lysis panel , auto Unknown Analyte Trace Not Available [facility] [address], [place], [address], 06/15/2021 16:29:45 06/15/19 22 06/15/2021 urina lysis panel , auto Unknown Analyte Negati ve Not Available [facility] [address], [place], [address], 06/15/2021 16:29:45 06/15/19 22 06/15/2021 urina lysis panel , auto Unknown Analyte Normal Not Available [facility] [address], [place], [address], 06/15/2021 16:29:45 06/15/19 22 06/15/2021 urina lysis panel , auto Unknown Analyte Normal Not Available [facility] [address], [place], [address], 06/15/2021 16:29:45 06/15/19 22 06/15/2021 urina lysis panel , auto Unknown Analyte Negati ve Not Available [facility] [address], [place], [address], 06/15/2021 16:29:45 06/15/19 22 06/15/2021 urina lysis panel , auto Unknown Analyte Negati ve Not Available [facility] [address], [place], [address], 06/15/2021 16:29:45 06/15/19 22 06/15/2021 urina lysis panel , auto Unknown Analyte Normal Not Available [facility] [address], [place], [address], 06/15/2021 16:29:45 06/15/19 22 06/15/2021 urina lysis panel , auto Unknown Analyte Normal 1 mg/dl Not Available [facility] [address], [place], [address], 06/15/2021 16:29:45 06/15/19 22 06/15/2021 urina lysis panel , auto Unknown Analyte Negati ve Not Available [facility] [address], [place], [address], 06/15/2021 16:29:45 06/15/19 22 06/15/2021 urina lysis panel , auto Unknown Analyte Negati ve Not Available [facility] [address], [place], [address], 06/15/2021 16:29:45 06/15/19 22 06/15/2021 urina lysis panel , auto Unknown Analyte Negati ve Not Available [facility] [address], [place], [address], 06/15/2021 16:29:45 06/15/19 22 06/15/2021 urina lysis panel , auto Unknown Analyte Negati ve Not Available [facility] [address], [place], [address], 06/15/2021 16:29:45 07/03/19 22 07/03/2021 urina lysis panel , auto Unknown Analyte Clean Catch Not Available [facility] Schedule [address] [place], [address], 07/03/2021 16:16:25 07/03/19 22 07/03/2021 urina lysis panel , auto Unknown Analyte Yellow Not Available [facility] Schedule [address] [place], [address], 07/03/2021 16:16:25 07/03/19 22 07/03/2021 urina lysis panel , auto Unknown Analyte Clear Not Available [facility] [address] [place], [address], 07/03/2021 16:16:25 07/03/19 22 07/03/2021 urina lysis panel , auto Unknown Analyte 1.010 Not Available [facility] [address] [place], [address], 07/03/2021 16:16:25 07/03/19 22 07/03/2021 urina lysis panel , auto Unknown Analyte 1.003- 1.035 Not Available [facility] Schedule [address] [place], [address], 07/03/2021 16:16:25 07/03/19 22 07/03/2021 urina lysis panel , auto Unknown Analyte 5.0 Not Available [facility] Schedule [address] [place], [address], 07/03/2021 16:16:25 07/03/19 22 07/03/2021 urina lysis panel , auto Unknown Analyte 5.0-8. 0 Not Available [facility] [address] [place], [address], 07/03/2021 16:16:25 07/03/19 22 07/03/2021 urina lysis panel , auto Unknown Analyte 25 Brice/ul Trace Not Available [facility] Schedule [address] [place], [address], 07/03/2021 16:16:25 07/03/19 22 07/03/2021 urina lysis panel , auto Unknown Analyte Negati ve Not Available [facility] Schedule [address] [place], [address], 07/03/2021 16:16:25 07/03/19 22 07/03/2021 urina lysis panel , auto Unknown Analyte Negati ve Not Available [facility] Schedule [address] [place], [address], 07/03/2021 16:16:25 07/03/19 22 07/03/2021 urina lysis panel , auto Unknown Analyte Negati ve Not Available [facility] Schedule [address] [place], [address], 07/03/2021 16:16:25 07/03/19 22 07/03/2021 urina lysis panel , auto Unknown Analyte Trace Not Available [facility] [place], [address], 07/03/2021 16:16:25 07/03/19 22 07/03/2021 urina lysis panel , auto Unknown Analyte Negati ve Not Available [facility] [place], [address], 07/03/2021 16:16:25 07/03/19 22 07/03/2021 urina lysis panel , auto Unknown Analyte Normal Not Available [facility] Schedule [address] [place] [address], [address], 07/03/2021 16:16:25 07/03/19 22 07/03/2021 urina lysis panel , auto Unknown Analyte Normal Not Available [facility] Schedule [address] [place] [address], [address], 07/03/2021 16:16:25 07/03/19 22 07/03/2021 urina lysis panel , auto Unknown Analyte Negati ve Not Available [facility] [address] [place] [address], [address], 07/03/2021 16:16:25 07/03/19 22 07/03/2021 urina lysis panel , auto Unknown Analyte Negati ve Not Available [facility] [place], [address], 07/03/2021 16:16:25 07/03/19 22 07/03/2021 urina lysis panel , auto Unknown Analyte Normal Not Available [facility] Schedule [address] [place] [address], [address], 07/03/2021 16:16:25 07/03/19 22 07/03/2021 urina lysis panel , auto Unknown Analyte Normal 1 mg/dl Not Available [facility] Schedule [address] [place], [address], 07/03/2021 16:16:25 07/03/19 22 07/03/2021 urina lysis panel , auto Unknown Analyte Negati ve Not Available [facility] Schedule [address] [place], [address], 07/03/2021 16:16:25 07/03/19 22 07/03/2021 urina lysis panel , auto Unknown Analyte Negati ve Not Available [facility] Schedule [address] [place], [address], 07/03/2021 16:16:25 07/03/19 22 07/03/2021 urina lysis panel , auto Unknown Analyte Negati ve Not Available [facility] Schedule [address] [place], [address], 07/03/2021 16:16:25 07/03/19 22 07/03/2021 urina lysis panel , auto Unknown Analyte Negati ve Not Available [facility] Schedule [address] [place], [address], 07/03/2021 16:16:25 10/06/19 22 10/05/2021 urina lysis panel , auto Unknown Analyte Clean Catch Not Available [facility] [address], [place], [address], 10/05/2021 13:05:58 10/06/19 22 10/05/2021 urina lysis panel , auto Unknown Analyte Yellow Not Available [facility] [address], [place], [address], 10/05/2021 13:05:58 10/06/19 22 10/05/2021 urina lysis panel , auto Unknown Analyte Clear Not Available [facility] [address], [place], [address], 10/05/2021 13:05:58 10/06/19 22 10/05/2021 urina lysis panel , auto Unknown Analyte 1.010 Not Available [facility] [place] [address], [place], [address], 10/05/2021 13:05:58 10/06/19 22 10/05/2021 urina lysis panel , auto Unknown Analyte 1.003- 1.035 Not Available [facility] [place] [address], [place], [address], 10/05/2021 13:05:58 10/06/19 22 10/05/2021 urina lysis panel , auto Unknown Analyte 6.5 Not Available [facility] [place] [address], [place], [address], 10/05/2021 13:05:58 10/06/19 22 10/05/2021 urina lysis panel , auto Unknown Analyte 5.0-8. 0 Not Available [facility] [place] [address], [place], [address], 10/05/2021 13:05:58 10/06/19 22 10/05/2021 urina lysis panel , auto Unknown Analyte 25 Brice/ul Trace Not Available [facility] [place] [address], [place], [address], 10/05/2021 13:05:58 10/06/19 22 10/05/2021 urina lysis panel , auto Unknown Analyte Negati ve Not Available [facility] [place] [address], [place], [address], 10/05/2021 13:05:58 10/06/19 22 10/05/2021 urina lysis panel , auto Unknown Analyte Negati ve Not Available [facility] [address], [place], [address], 10/05/2021 13:05:58 10/06/19 22 10/05/2021 urina lysis panel , auto Unknown Analyte Negati ve Not Available [facility] [place] [facility] [address], [place], [address], 10/05/2021 13:05:58 10/06/19 22 10/05/2021 urina lysis panel , auto Unknown Analyte Negati ve Not Available [facility] [address], [place], [address], 10/05/2021 13:05:58 10/06/19 22 10/05/2021 urina lysis panel , auto Unknown Analyte Negati ve Not Available [facility] [address], [place], [address], 10/05/2021 13:05:58 10/06/19 22 10/05/2021 urina lysis panel , auto Unknown Analyte Normal Not Available [facility] [address], [place], [address], 10/05/2021 13:05:58 10/06/19 22 10/05/2021 urina lysis panel , auto Unknown Analyte Normal Not Available [facility] [address], [place], [address], 10/05/2021 13:05:58 10/06/19 22 10/05/2021 urina lysis panel , auto Unknown Analyte Negati ve Not Available [facility] [address], [place], [address], 10/05/2021 13:05:58 10/06/19 22 10/05/2021 urina lysis panel , auto Unknown Analyte Negati ve Not Available [facility] [address], [place], [address], 10/05/2021 13:05:58 10/06/19 22 10/05/2021 urina lysis panel , auto Unknown Analyte Normal Not Available [facility] [address], [place], [address], 10/05/2021 13:05:58 10/06/19 22 10/05/2021 urina lysis panel , auto Unknown Analyte Normal 1 mg/dl Not Available [facility] [address], [place], [address], 10/05/2021 13:05:58 10/06/19 22 10/05/2021 urina lysis panel , auto Unknown Analyte Negati ve Not Available [facility] [address], [place], [address], 10/05/2021 13:05:58 10/06/19 22 10/05/2021 urina lysis panel , auto Unknown Analyte Negati ve Not Available [facility] [place] [facility] [address], [place], [address], 10/05/2021 13:05:58 10/06/19 22 10/05/2021 urina lysis panel , auto Unknown Analyte Negati ve Not Available [facility] [address], [place], [address], 10/05/2021 13:05:58 10/06/19 22 10/05/2021 urina lysis panel , auto Unknown Analyte Negati ve Not Available [facility] [address], [place], [address], 10/05/2021 13:05:58 04/12/20 22 04/12/2022 urina lysis panel , auto Unknown Analyte Clean Catch Not Available [facility] [address], [place], [address], 04/12/2022 13:30:50 04/12/20 22 04/12/2022 urina lysis panel , auto Unknown Analyte Yellow Not Available [facility] [address], [place], [address], 04/12/2022 13:30:50 04/12/20 22 04/12/2022 urina lysis panel , auto Unknown Analyte Clear Not Available [facility] [address], [place], [address], 04/12/2022 13:30:50 04/12/20 22 04/12/2022 urina lysis panel , auto Unknown Analyte 1.010 Not Available [facility] With [place] [address], [place], [address], 04/12/2022 13:30:50 04/12/20 22 04/12/2022 urina lysis panel , auto Unknown Analyte 5.0 Not Available [facility] [address], [place], [address], 04/12/2022 13:30:50 04/12/20 22 04/12/2022 urina lysis panel , auto Unknown Analyte 25 Brice/ul Trace Not Available [facility] [address], [place], [address], 04/12/2022 13:30:50 04/12/20 22 04/12/2022 urina lysis panel , auto Unknown Analyte Negati ve Not Available [facility] [address], [place], [address], 04/12/2022 13:30:50 04/12/20 22 04/12/2022 urina lysis panel , auto Unknown Analyte Negati ve Not Available [facility] [address], [place], [address], 04/12/2022 13:30:50 04/12/20 22 04/12/2022 urina lysis panel , auto Unknown Analyte Negati ve Not Available [facility] [address], [place], [address], 04/12/2022 13:30:50 04/12/20 22 04/12/2022 urina lysis panel , auto Unknown Analyte 30 mg/dl (+) Not Available [facility] [address], [place], [address], 04/12/2022 13:30:50 04/12/20 22 04/12/2022 urina lysis panel , auto Unknown Analyte Negati ve Not Available [facility] [address], [place], [address], 04/12/2022 13:30:50 04/12/20 22 04/12/2022 urina lysis panel , auto Unknown Analyte Normal Not Available [facility] [address], [place], [address], 04/12/2022 13:30:50 04/12/20 22 04/12/2022 urina lysis panel , auto Unknown Analyte Normal Not Available [facility] [address], [place], [address], 04/12/2022 13:30:50 04/12/20 22 04/12/2022 urina lysis panel , auto Unknown Analyte Negati ve Not Available [facility] [address], [place], [address], 04/12/2022 13:30:50 04/12/20 22 04/12/2022 urina lysis panel , auto Unknown Analyte Negati ve Not Available [facility] [address], [place], [address], 04/12/2022 13:30:50 04/12/20 22 04/12/2022 urina lysis panel , auto Unknown Analyte Normal Not Available [facility] [address], [place], [address], 04/12/2022 13:30:50 04/12/20 22 04/12/2022 urina lysis panel , auto Unknown Analyte Normal 1 mg/dl Not Available [facility] [address], [place], [address], 04/12/2022 13:30:50 04/12/20 22 04/12/2022 urina lysis panel , auto Unknown Analyte Negati ve Not Available [facility] [address], [place], [address], 04/12/2022 13:30:50 04/12/20 22 04/12/2022 urina lysis panel , auto Unknown Analyte Negati ve Not Available [facility] [address], [place], [address], 04/12/2022 13:30:50 04/12/20 22 04/12/2022 urina lysis panel , auto Unknown Analyte Negati ve Not Available [facility] [address], [place], [address], 04/12/2022 13:30:50 04/12/20 22 04/12/2022 urina lysis panel , auto Unknown Analyte Negati ve Not Available [facility] Extended [facility] With [facility] [address], [place], [address], 04/12/2022 13:30:50 07/14/19 22 07/14/2021 US, retro perit oneum , limit ed [facility] [address] [place] [address] Patien t Name: SOCORRO mirza : 1944 Elia t Orderi ng Provid er: LEAH DAO [facility] EXAM DATE: 2021 EXAM: US KIDNEY BILAT WO BLADDE R CLINIC AL INFORM ATION: Recurr ent UTI. TECHNI QUE: Multip le sonogr aphic images of both kidney s were obtain ed. COMPAR ROOSEVELT: None. FINDIN GS: RIGHT KIDNEY : Length = 11 cm. No hydron ephros is, mass or stone. LEFT KIDNEY : Length = 11.3 cm. No hydron ephros is, mass or stone. IMPRES YARELY: Normal sonogr am of both kidney s. Interp reted By: Srini Whelan MD Electr onical ly Signed By: Srini Whelan MD on 07/14/19 4:[address] Radiology [facility] [address] [place] [address], [phone], 09/10/2021 17:35:58 Result Notes None recorded. Problems Name Problem SNOMED Code Status Onset Date Resolution Date Notes Provider Name and Address Organization Details Recorded Time Recurrent urinary tract infection 326200935 Active 022 LEAH CROWLEY JR, MD [address] [place] [address], [id number], [facility] 15:51:01 Problem Notes None recorded. Procedures Surgical History Date Name Laterality Status Provider Name and Address Organization Details Recorded Time 07/03/19 Cystoscopy - female completed LEAH CROWLEY JR, MD [address] [place] [address], [phone], [facility] 07/03/2021 13:06:26 Cholecystectomy completed Murelene Hermelindo [facility] 06/15/2021 16:27:22 Ankle arthroscopy/surgery completed Murelene Hermelindo [facility] 06/15/2021 16:27:31 Hysterectomy completed Murelene Hermelindo [facility] 06/15/2021 16:27:41 Imaging Results None recorded. Procedure Notes None recorded. Medical Equipment None Reported. Allergies Allergen ID Allergen Name Allergen Category Reaction Reaction Severity Criticality Documentation Date Start Date Code Code System Note Provider Name and Address Organization Details Recorded Time 515505 Lipitor medicatio n Not available Not available Not available 06/15/2021 95184 5 RxNorm Murelene Hermelindo [facility] 2 16:22:20 369450 Macrobid medicatio n Not available Not available Not available 06/15/2021 14814 1 RxNorm Kelly Casarez [facility] 2 16:22:30 327428 Substance with sulfonami de structure and antibacte rial mechanism of action (substanc e) medicatio n Not available Not available Not available 06/15/2021 88310 8003 SNOMED Kelly Casarez [facility] 2 16:22:53 Medications Name Sig Start Date Stop Date Status Note LastModified by Organization Details LastModified Time Ultravate 0.05 % topical ointment Two times a day 2007 active Instructio ns: apply to hands and feet bid x 2-3 weeks prn;Freque ncy: bid;Medica tion Descriptio n: halobetaso l topical; Dosage:as directed; Route:topi mercedes; refills:2; Quantity:6 0gms ointment Not Available Not Available Not Available flaxseed oil 1,000 mg capsule Take by oral route. active Not Available Not Available No t Available methenamin e hippurate 1 gram tablet Take 1 tablet(s ) twice a day by oral route. 2022 active Not Available Not Available Not Avai lable doxycyclin e monohydrat e 100 mg capsule Take 1 capsule twice a day by oral route for 15 days. 2021 active Not Available Not Available Not Avai lable hydralazin e 100 mg tablet Take 1 tablet twice a day by oral route. active Not Available Not Available No t Available metformin 1,000 mg tablet Take 1 tablet twice a day by oral route. active Not Available Not Available No t Available Zoloft 100 mg tablet Take 1 tablet every day by oral route. active Not Available Not Available No t Available Asprin Ec Low Dose 81 mg tablet,del ayed release Take 1 tablet every day by oral route. active Not Available Not Available No t Available ezetimibe 10 mg tablet Take 1 tablet every day by oral route. active Not Available Not Available No t Available rosuvastat in 5 mg tablet Take 1 tablet every day by oral route. active Not Available Not Available No t Available valsartan active Not Available Not Marcia ilable Not Available cranberry active Not Available Not Marcia ilable Not Available amlodipine active Not Available Not Av ailable Not Available Centrum Silver active Not Available Not Available Not Available Bystolic 10 mg tablet Take 1 tablet every day by oral route. active Not Available Not Available No t Available D3-2000 active Not Available Not Avail able Not Available Osteo Bi-Flex active Not Available Not Available Not Available Caltrate active Not Available Not Avai lable Not Available Vitals Date Recorded Body height Body mass index (BMI) Body weight Provider Name and Address Organization Details Last Updated DateTime 06/15/2021 160.02 cm 29.2 kg/m2 78825.74 g [facility] 06/15/2021 16:22:05 Date Recorded Body height Body mass index (BMI) Body weight Provider Name and Address Organization Details Last Updated DateTime 10/05/2021 160.02 cm 29.2 kg/m2 55920.74 g [facility]/05/[facility]21 13:05:19 Date Recorded Body height Body mass index (BMI) Body weight Provider Name and Address Organization Details Last Updated DateTime 04/12/2022 160.02 cm 29.2 kg/m2 32718.74 g Mildred [facility] 04/12/2022 13:30:13 Social History Question Answer Notes LastModified by Organizat ion Details LastModified Time Tobacco Smoking Status Never Smoker Kelly Casarez [facility] 06/15/2021 16:27:05 What Was The Date Of Your Most Recent Tobacco Screening? 06/15/2021 Information not available 06/15/2021 What Is Your Relationship Status? Information not available 06/15/2021 Sex: Unknown Functional Status Question Answer Note LastModified by Organization D etails LastModified Time What is your level of alcohol consumption? None [email or web address] Information not available 06/15/2021 Mental Status None recorded. Family History Relationship Description Onset Age of this Age Resolved Age Notes LastModified by Organization Details LastModified Time Mother Family history of malignant neoplasm [email or web address] Not available 2021 16:26:48 Medical History No medical history recorded. Gynecological HistoryNo gynecological history recorded. Obstetrics History GPAL:G 0 P 0 0 0 0 Past Encounters Encounter ID Performer Location Encounter Start Date Encounter Closed Date Diagnosis/Indication Diagnosis SNOMED-CT Code Diagnosis ICD10 Code Diagnosis Note [id number] LEAH CROWLEY JR, MD [facility] [address] [facility] [address] [place] [address] 06/15/2021 15:51:55 06/15/2021 17:43:19 Recurrent urinary tract infection 676758181 N39.0 Urinary tr act infectious disease 88231451 N39.0 [id number] LEAH CROWLEY JR, MD SURGERY SCHEDULE [address] [place] [address] 07/03/2021 11:59:38 07/03/2021 12:20:36 Recurrent urinary tract infection 215798062 N39.0 [id number] LEAH CROWLEY JR, MD [facility] [address] [facility],[address] [address] 10/05/2021 13:01:21 10/12/2021 16:34:42 Recurrent urinary tract infection 632748392 N39.0 [id number] LEAH CROWLEY JR, MD [place] [address] [facility],[address] [address] 04/12/2022 13:23:37 04/20/2022 18:51:32 Recurrent urinary tract infection 438236097 N39.0 Health Concerns Section Related Observation LastModified by Organization Detai ls LastModified Time None Recorded Concern Status LastModified by Organization Details LastModified Time None Recorded Advance Directives Directive None Recorded Payers Insurance Date Sequence Insurance Name Policy Number Policy Garcia Covered Member ID Garcia Member ID Guarantor Name 04/09/2022 1 [place] Socorro Zamora [id number] Socorro Zamora 07/08/2021 2 [facility] Socorro Zamora 06/23/2021 1 [facility] (MEDICARE REPLACEMENT/ADV ANTAGE - PPO) [id number] Socorro Zamora [id number] Socorro Zamora 06/23/2021 2 [employer] SU[employer]LE[employer]AL - [employer] (MEDICARE SUPPLEMENT) Socorro Zamora [id number] Socorro Zamora 04/20/2022 2 [facility]) [id number] Socorro Zamora [id number] Socorro Zamora OBGyn Episode No OBEpisode recorded.
--- OUTSIDE RECORDS SUMMARY | 2024-12-31 13:20 | XMS_ITS | Clinical Summary ---
Author Organization [facility] Address [address] [place] [address] Care Team Providers Care Sampler First Name Role Phone King Fish MD Primary Care Provider [phone] Allergies Active Allergy Reactions Criticality Noted Date Comments Atorvastatin Nausea Only,Unknown (See Comments) Medium 08/14/2019 Other reaction(s): Myalgia Atorvastatin Calcium Nausea Only,Myalgia Medium 2019 Lisinopril Cough,Nausea Only,Unknown (See Comments) Low 05/13/2020 Nitrofurantoin Nausea Only High 08/14/2019 Ineffective Niacin Swelling,Unknown (Se e Comments) High 08/14/2019 Sulfa Antibiotics Nausea Only Low 08/14/2019 Ineffective Ineffective Medications rosuvastatin (CRESTOR) 5 MG tablet Take 1 tablet by mouth Daily. Active Cranberry 500 MG capsule Take 500 mg by mouth Daily. Active Flaxseed, Linseed, (FLAXSEED OIL) 1000 MG capsule Take 1,000 mg by mouth Daily. Active ezetimibe (ZETIA) 10 MG tablet Take 1 tablet by mouth Daily. Active Multiple Vitamins-Minera ls (CENTRUM SILVER PO) Take by mouth Daily. Active aspirin 81 MG EC tablet Take 1 tablet by mouth Daily. Active amLODIPine (NORVASC) 10 MG tablet 0 Active sertraline (ZOLOFT) 100 MG tablet Take 1.5 tablets by mouth Daily. 2 Active OneTouch Ultra test strip 2 Active Cholecalciferol (Vitamin D3) 50 MCG (1999) capsule D3-1999 Active Boswellia-Gluco samine-Vit D (OSTEO BI-FLEX ONE PER DAY PO) Osteo Bi-Flex Active Calcium Carbonate (CALTRATE 600 PO) Caltrate Active levoFLOXacin (LEVAQUIN) 500 MG tablet TAKE 1 TABLET BY MOUTH ONCE DAILY FOR 10 DAYS 2 Active Diclofenac Sodium (VOLTAREN) 1 % gel gel Apply 4 g topically to the appropriate area as directed 2 (Two) Times a Day. 350 g 3 Active methenamine (HIPREX) 1 g tablet 3 Active nebivolol (BYSTOLIC) 5 MG tablet Take 1 tablet by mouth 2 (Two) Times a Day. Active glipizide (GLUCOTROL XL) 10 MG 24 hr tablet Take 1 tablet by mouth Daily. Active hydrALAZINE (APRESOLINE) 25 MG tablet Take 1 tablet by mouth 3 times a day. 3 Active valsartan-hydro chlorothiazide (DIOVAN-HCT) 320-25 MG per tablet Take 1 tablet by mouth Daily. 3 Active hydrOXYzine (ATARAX) 25 MG tablet Take 1 tablet by mouth Daily. for anxiety 3 Active nebivolol (BYSTOLIC) 20 MG tablet 4 Active Active Problems Problem Noted Date Diagnosed Date Renal artery stenosis 08/15/2019 Family History Medical History Relation Name Comments Diabetes Brother Vladimir Fernandez Diabetes Father Mars Fernandez Leukemia Father Mars Fernandez Diabetes Maternal Grandmother Courtney Araiza Cancer Mother Gaby Yepez Lung Lung cancer Mother Gaby Yepez Breast cancer Neg Hx Colon cancer Neg Hx Ovarian cancer Neg Hx Uterine cancer Neg Hx Relation Name Status Comments Brother Vladimir Fernandez Father Mars Fernandez Maternal Grandmother Courtney White Mother Gaby Yepez Social History Tobacco Use Types Packs/Day Years Used Date Smoking Tobacco: Never Passive Smoke Exposure: Past Smokeless Tobacco: Never Tobacco Cessation:Counseling Given: No Alcohol Use Standard Drinks/Week Comments Never 0 (1 standard drink = 0.6 oz pur e alcohol) Humiliation, Afraid, Rape, and Kick questionnair e Answer Date Recorded Within the last year, have y ou been afraid of your partner or ex-partner? No 04/21/2020 Within the last year, have y ou been humiliated or emotionally abused in other ways by your partner or ex-partner? No Within the last year, have y ou been kicked, hit, slapped, or otherwise physically hurt by your partner or ex-partner? No 04/21/2020 Within the last year, have y ou been raped or forced to have any kind of sexual activity by your partner or ex-partner? No 04/21/2020 AUDIT-C Answer Date Recorded Q1: How often do you have a drink containing alc ohol? Never 04/21/2020 Average Number of Drinks Not on file 020 Frequency of Binge Drinking Not on file 04/06 Exercise Vital Sign Answer Date Recorde d On average, how many days pe r week do you engage in moderate to strenuous exercise (like a brisk walk)? 6 days 04/21/2020 On average, how many minutes do you engage in exercise at this level? 30 min 04/21/2020 Abuse Screen Answer Date Recorded Unsafe at Home or Work/School Not on file Feels Threatened by Someone? Not on file 04/2023 Does Anyone Keep You from Co ntacting Others or Doint Things Outside the Home? Not on file 03/16/2023 Physical Sign of Abuse Present Not on file 1 Housing Stability Answer Date Recorded Current Living Arrangements Not on file 03/06 Potentially Unsafe Housing Conditions Not on mady e 03/16/2023 Family and Community Support Answer Bert e Recorded Help with Day-to-Day Activities Not on file 03/16/2023 Lonely or Isolated Not on file 03/16/2023 Employment Answer Date Recorded Do you want help finding or keeping work or a hailee b? Not on file 03/16/2023 Disabilities Answer Date Recorded Concentrating, Remembering, or Making Decisions Difficulty Not on file 03/16/2023 Doing Errands Independently Difficulty Not on fi le 03/16/2023 Education Answer Date Recorded Help with school or training? Not on file Preferred Language Not on file 03/16/2023 Comments No Sex and Gender Information Value Date Recorded Sex Assigned at Not on file Legal Sex Female 2:26 PM EST Gender Identity Not on file Sexual Orientation Not on file Occupation Industry Job Start Date Job End Date [employer] Not on file Not on file Not o n file Last Filed Vital Signs Vital Sign Reading Time Taken Comments Blood Pressure 128/72 08/24/2023 9:12 AM EDT Pulse 54 08/15/2019 12:18 PM EDT Temperature - - Respiratory Rate - - Oxygen Saturation - - Inhaled Oxygen Concentration - - Weight 77.4 kg (170 lb 9.6 oz) 08/24/2023 9:12 A M EDT Height 162 cm (5' 3.78 ) 08/24/2023 9:12 AM EDT Body Mass Index 29.49 08/24/2023 9:12 AM EDT Plan of Treatment Health Maintenance Due Date Last Done Comments TDAP/TD VACCINES (1 - Tdap) 1966 COLOGUARD 1992 COLON CANCER SCREENING 5 YEA R SIGMOIDOSCOPY 1992 CT COLONOGRAPHY 1992 FECAL OCCULT BLOOD TEST 1992 FIT Testing (1 year) 1992 Pneumococcal Vaccine 50+ (1 of 1 - PCV) 1997 DXA SCAN 06/06/2018 06/06/2016 ZOSTER VACCINE (2 of 2) 09/14/2018 07/20/2018 ANNUAL WELLNESS VISIT 08/15/2019 HEPATITIS C SCREENING 08/15/2019 PAP SMEAR 04/26/2021 04/26/2020, 03/06/2018 RSV Vaccine - Adults (1 - 1- dose 75+ series) 2022 COVID-19 Vaccine (4 - 2023-2 5 season) 2024 04/23/2021, 09/19/2020, 08/19/2020 INFLUENZA VACCINE 03/06/2025 COLONOSCOPY 03/06/2028 03/06/2018 COLORECTAL CANCER SCREENING 03/06/2028 MAMMOGRAM Discontinued 02/05/2020 Procedures Procedure Name Priority Date/Time Associated Diagnosis Comments PAP IG, RFX HPV ASCU ([facility] LAB) Routine 04/26/2020 1:28 PM EST Women's annual routine gynecological examination from Last 3 Months or Most Recently Relevant to Health Maintenance Results * Pap IG, Rfx HPV ASCU (04/26/2020 1:28 PM EST) ThinPrep Vial us Miranda Liriano MD PATHOLOGY/CYTOLOGY ORDERABLES Fi nal Result [facility]
[address] [place] [address], from Last 3 Months or Most Recently Relevant to Health Maintenance Insurance MEDICARE A & B Member Subscriber Plan / Payer (Ef fective 2012-Present) Name:Socorro Zamora Member ID:[id number] Relation to Subscriber:Self Name:Socorro Zamora Subscriber ID:[id number] Payer ID:[id number] Group ID:Not on file Type:Not on file Address: [place] [id number] [address] Care Teams Sampler First Relationship Specialty Start Date End Date King Fish MD [address] [place] [address] PCP - General Family Medicine 08/03/19
== END 2024-12-31 23:59 | disposition home or self-care (01) ==
LOC: RAD 13:18
PROVIDERS: PCP Family Medicine; Visit Provider Family Medicine
DX: M85.852 Other specified disorders of bone density and structure, left thigh (principal); M85.851 Other specified disorders of bone density and structure, right thigh; M81.0 Age-related osteoporosis without current pathological fracture; Z78.0 Asymptomatic menopausal state
CPT/HCPCS: 77080